=== PATIENT | male | born 1960 | race Two or more races ===

== ENCOUNTER 2023-05-03 09:26 | Emergency (ER) | payer OTHER ==
[~2023-05-03] VITALS: Ht 170.2 cm; Wt 105.9 kg
[2023-05-03 10:03] VITALS: BP 111/67; PULSE 89; RESP 16; TEMP 98; O2SAT 95
[2023-05-03 10:53] LABS: Urine Bacteria NONE SEEN /hpf (None Seen); Urine Blood Negative /uL (Negative); Urine Clarity Clear (Clear); Urine Color Colorless (Yellow); Urine Protein, UAD Negative (Negative); Urine Specific Gravity 1.014 (1.001-1.035); Urine Urobilinogen Normal (Negative); Urine WBC <1 /hpf (0 - 3)
[2023-05-03] MEDS ORDERED: CLOT1CRE7 EX (11:50)
[2023-05-03] MEDS ORDERED: CEPH500C PO (11:50)
[2023-05-03] MEDS ORDERED: HYD1TP TOP (11:50)
[2023-05-03] MEDS ORDERED: cefTRIAXone SOD 1,000 MG VL IM ONE (12:00)
[2023-05-05 23:06] LABS: Chlamydia Trachomatis, NAA Negative (Negative); Neisseria gonorrhoeae, NAA Negative (Negative)
== END 2023-05-03 11:46 | disposition home or self-care (01) ==
LOC: ER 09:26
DX: N48.1 Balanitis (principal)
CPT/HCPCS: 81001; 87491; 87591; 96372; 99283; J0696

== ENCOUNTER 2024-09-24 11:33 | Emergency (ER) | payer OTHER ==
[~2024-09-24] VITALS: Ht 167.6 cm; Wt 99.5 kg
[~2024-09-24 11:33] MED LIST: CEPH500C PO; CLOT1CRE7 EX; HYD1TP TOP
[2024-09-24 12:23] LABS: Urine Bacteria FEW /hpf (None Seen); Urine Blood 1+ /uL (Negative); Urine Clarity Clear (Clear); Urine Color Yellow (Yellow); Urine Protein, UAD TRACE (Negative); Urine Specific Gravity 1.018 (1.001-1.035); Urine Squamous Epithelial Cell FEW /hpf (<5); Urine Urobilinogen Normal (Negative); Urine WBC 18 /HPF (0-3)
[2024-09-24] MEDS ORDERED: BAC09TP TOP (12:47)
[2024-09-24] MEDS ORDERED: CIPR-173 PO (12:47)
--- NOTE | 2024-09-24 13:03 | ED.PDOC ---
General HPI Comments 64y M who presents to the ED for chief complaint of penile problem. Pt states for the past 3-4 months, he has been having pain, redness and swelling while attempting to retract his foreskin. P states he is uncircumcised and states he has also been having mild dysuria but denies fever, cough, chills, hematuria, or associated symptoms. Pt otherwise denies any ability to void. Pt otherwise denies any other symptoms at this time. Chief Complaint: Penile Problem Time Seen by MD: 12:30 Primary Care Provider: DR DAMON Allergies: Coded Allergies: NO KNOWN ALLERGIES (Unverified , 05/03/23) Home Meds Active Scripts Bacitracin (Bacitracin Oint) 1 Applic Ap, 1 APPLIC TOP QID for 10 Days, #1 UNIT Prov:MARGRET CALLE MD 09/24/24 Ciprofloxacin Hcl (Cipro) 500 Mg Tab, 500 MG PO BID for 10 Days, #20 TAB Prov:MARGRET CALLE MD 09/24/24 Hydrocortone (Hydrocortisone 1%) 1 Applic Ap, 1 APPLIC TOP TID, #15 MG mixed with clortimazole cream and apply to your whole penis Prov:KONG JAY INSULATION CUTTER 05/03/23 Clotrimazole (Topical) (Clotrimazole Anti-Fungal) 1 % Cre, 1 % EX TID for 14 Days, #15 MG mixed with hydrocortisone cream and applt to your whole penis Prov:KONG JAY INSULATION CUTTER 05/03/23 Cephalexin Monohydrate (Cephalexin) 500 Mg Cap, 1 CAP PO QID for 10 Days, #40 CAP Prov:KONG JAY INSULATION CUTTER 05/03/23 Information Source: Patient Mode of Arrival: Ambulatory Brought in by: self Past Medical History PAST MEDICAL HISTORY: Denies Surgical History: Denies all surgeries Family History Family History: Reviewed,noncontributory to illness Social History Smoker: Non-Smoker Alcohol: Denies ETOH Use Drugs: Denies Drug Use Lives In: Home Constitutional: denies: chills, diaphoresis, fatigue, fever, malaise, sweats, weakness, others EENTM: denies: blurred vision, double vision, ear bleeding, ear discharge, ear drainage, ear pain, ear ringing, eye pain, eye redness, hearing loss, mouth pain, mouth swelling, nasal discharge, nose bleeding, nose congestion, nose pain, photophobia, tearing, throat pain, throat swelling, voice changes, others Respiratory: denies: cough, hemoptysis, orthopnea, SOB at rest, shortness of breath, SOB with excertion, stridor, wheezing, others Cardiovascular: denies: chest pain, dizzy spells, diaphoresis, Dyspnea on exertion, edema, irregular heart beat, left arm pain, lightheadedness, palpitations, PND, syncope, others Gastrointestinal: denies: abdomen distended, abdominal pain, blood streaked bowels, constipated, diarrhea, dysphagia, difficulty swallowing, hematemesis, melena, nausea, poor appetite, poor fluid intake, rectal bleeding, rectal pain, vomiting, others Genitourinary: reports: pain (foreskin); denies: burning, dysuria, flank pain, frequency, hematuria, incontinence, penile discharge, penile sore, testicle pain, testicle swelling, urgency, others Neurological: denies: dizziness, fainting, headache, left sided numbness, left sided weakness, numbness, paresthesia, pre-existing deficit, right sided numbness, right sided weakness, seizure, speech problems, tingling, tremors, w eakness, others Musculoskeletal: denies: back pain, gout, joint pain, joint swelling, muscle pain, muscle stiffness, neck pain, others Integumetry: denies: bruises, change in color, change in hair/nails, dryness, laceration, lesions, lumps, rash, wounds, others Allergic/Immunocompromised: denies: Difficulty Healing, Frequent Infections, Hives, Itching, others Hematologic/Lymphatic: denies: anemia, blood clots, easy bleeding, easy bruising, swollen glands, others Endocrine: denies: excessive hunger, excessive sweating, excessive thirst, excessive urination, flushing, intolerance to cold, intolerance to heat, unexplained weight gain, unexplained weight loss, others Psychiatric: denies: anxiety, bipolar disorder, depression, hopeless, panic disorder, schizophrenia, sleepless, suicidal, others All Other Systems: Reviewed and Negative Physical Exam General Appearance: No Apparent Distress, Normal HEENT: Normal ENT Inspection, Pharynx Normal, TMs Normal Neck: Full Range of Motion, Non-Tender, Normal, Normal Inspection Respiratory: Chest Non-Tender, Lungs Clear, No Accessory Muscle Use, No Respiratory Distress, Normal Breath Sounds Cardiovascular: No Edema, No JVD, No Murmur, No Gallop, Normal Peripheral Pulses, Regular Rate/Rhythm Breast Exam: Deferred Gastrointestinal: No Organomegaly, Non Tender, No Pulsatile Mass, Normal Bowel Sounds, Soft Genitalia: Foreskin (foreskin long but no swelling, no erythema, no induration, no tenderness, retractable), Penis (minimal erythema) Pelvic: Deferred Rectal: Deferred Extremities: No calf tenderness, Normal capillary refill, Normal inspection, Normal range of motion, Non-tender, No pedal edema Musculoskeletal : Apperance: Normal Neurologic: Alert, flat sheet maker II-XII nml as Tested, No Motor Deficits, Normal Affect, Normal Mood, No Sensory Deficits Cerebellar Function: Normal Reflexes: Normal Skin: Dry, Normal Color, Warm Lymphatic: No Adenopathy Was a procedure done? Was a procedure done?: No Differential Diagnosis Kidney stone (Female): N/A Penile/Scrotal: Epidiymitis, Foreign Body, STD, UTI, Phimosis, Hydrocele, Urolithiasis, Other X-Ray, Labs, Meds, VS Vital Signs Date Time Temp Pulse Resp B/P (MAP) Pulse Ox O2 Delivery O2 Flow Rate FiO2 09/24/24 13:12 98.0 90 18 99/70 (80) 99 98.0 09/24/24 13:12 90 18 99 Room Air 0 09/24/24 12:00 97.8 97 18 102/66 (78) 9 Lab Test 09/24/24 12:04 Range/Units Urine Color Yellow Yellow Urine Clarity Clear Clear Urine pH 6.0 5.0-9.0 Urine Specific [place] 1.018 1.001-1.035 Urine Protein Trace H Negative Urine Ketones Negative Negative Urine Blood 1+ H Negative /uL Urine Nitrite Negative Negative Urine Bilirubin Negative Negative Urine Urobilinogen Normal Negative mg/dL Urine Leukocyte Esterase 3+ Negative /uL Urine RBC 5 0 - 3 /hpf Urine Microscopic WBC 18 H 0-3 /HPF Urine Squamous Epithelial Cells Few <5 /hpf Urine Bacteria Few H None Seen /hpf Urine Glucose Normal Normal mg/dL Time of 1ST Reevaluation: 13:00 Reevaluation 1ST: Unchanged Time of 2ND Reevaluation: 13:30 Reevaluation 2ND: Improved Patient Education/Counseling: Diagnosis, Treatment Family Education/Counseling: No Family Present Departure 1 Departure Time of Disposition: 13:30 Impression: Primary Impression: UTI (urinary tract infection) Additional Impression: Balanitis Disposition: HOME / SELF CARE / HOMELESS Condition: Stable Additional Instructions: Debe hacer joe sarah con kimball medico regular y joe especialista de Urologia Regrese aqui si siente peor e-Prescriptions Bacitracin (Bacitracin Oint) 1 Applic Ap 1 APPLIC TOP QID for 10 Days, #1 UNIT Prov: MARGRET CALLE MD 09/24/24 Ciprofloxacin Hcl (Cipro) 500 Mg Tab 500 MG PO BID for 10 Days, #20 TAB Prov: MARGRET CALLE MD 09/24/24 Discharged With: Self Critical Care Note Critical Care Time?: No Stability Stability form required: No Heart Score Heart Score: Heart Score Response (Comments) Value History N/A 0 EKG N/A 0 Age N/A 0 Risk Factors N/A 0 Troponin N/A 0 Total 0 I personally scribed for MARGRET CALLE MD ([email or web address]) on 09/24/24 at 13:03. Electronically submitted by Gema Islas ([email or web address]). MARGRET CALLE MD Sep 24, 2024 13:03
[2024-09-24 13:12] VITALS: BP 99/70; PULSE 90; RESP 18; TEMP 98; O2SAT 99
== END 2024-09-24 13:17 | disposition home or self-care (01) ==
LOC: ER 11:33
DX: N39.0 Urinary tract infection, site not specified (principal); N48.1 Balanitis; Z79.899 Other long term (current) drug therapy
CPT/HCPCS: 81001